=== PATIENT | male | born 1960 | race Caucasian/White ===

== ENCOUNTER 2021-10-30 12:42 | Outpatient (REF) | payer OTHER, SELFPAY ==
[2021-10-30 13:16] LABS: ALT 28 U/L (16-63); AST 19 U/L (15-37); Alkaline Phosphatase 73 U/L (46-116); Anion Gap 9.1 mmol/L (3-11); BUN 11 mg/dL (7-18); Bilirubin, Total 0.7 mg/dL (0.2-1.0); CO2 25.9 mmol/L (21.0-32.0); CREATININE 0.8 mg/dL (0.70-1.30); Calcium 9.2 mg/dL (8.5-10.1); Chloride 104 mmol/L (98-107); Glucose 97 mg/dL (74-106); Potassium 4.5 mmol/L (3.5-5.1); Sodium 139 mmol/L (136-145); Total Protein 7.5 g/dL (6.4-8.2)
== END 2021-10-30 12:43 | disposition home or self-care (01) ==
LOC: LBN 12:42
PROVIDERS: PCP Family Medicine; Visit Provider Physician Assistant Medical
DX: B97.21 SARS-associated coronavirus as the cause of diseases classified elsewhere (principal)
CPT/HCPCS: 80053

== ENCOUNTER 2023-06-09 12:28 | Emergency (ER) | payer OTHER, SELFPAY ==
[2023-06-09] VITALS (60 sets, daily range): BP systolic 145–211; BP diastolic 91–147; PULSE 64–98; RESP 10–25; TEMP 36.8; O2SAT 93–100
--- NOTE | 2023-06-09 13:00 | ED.GENADUL_ITS ---
HPI <SUSAN Ibarra - Last Filed: 06/09/23 17:38> General Stated Complaint: GenMedical CONCHITA: 3 Date/Time Provider Initiated Documentation: 06/09/23 12:40. Limitations to Documentation: no limitations. Information obtained by: patient, RN/MD, RN notes reviewed and old records reviewed. History of Present Illness tingling BUE, ataxic gait, numbness in feet moderate other (numbness, tingling) left, right, upper extremity and lower extremity reports no radiation day(s) constant No relieving factors improve symptom(s), No exacerbating factors reported weakness; denies chest pain, cough, diaphoresis, fever/chills, headaches (has chronic ADHIKARI, especially with stress at work, no change), loss of appetite, malaise, nausea/vomiting, rash, shortness of breath and syncope none Related Data Home Medications Medication Instructions Recorded Confirmed acetaminophen 500 mg tablet (Mapap 500 mg PO TID PRN 11/21/17 06/09/23 Extra Strength) ibuprofen 800 mg tablet 800 mg PO QAM 06/09/23 06/09/23 Allergies Allergy/AdvReac Type Severity Reaction Status Date / Time erythromycin base Allergy Unknown pt thinks Verified 06/09/23 11:49 a rash Penicillins Allergy Unknown pt Verified 06/09/23 11:49 questions rash Review of Systems <SUSAN Ibarra Last Filed: 06/09/23 17:38> Constitutional Constitutional: Reports as per HPI, Denies chills, Denies fever(s), Denies frequent falls and Reports weakness Eyes Eyes: Reports as per HPI, Denies blurry vision, Denies change in vision and Denies loss of vision ENT Ears, Nose, Mouth, and Throat: Denies vertigo, Denies dizziness, Denies neck pain and Reports disequilibrium Cardiovascular Cardiovascular: Reports as per HPI, Denies chest pain, Denies syncope, Denies lightheadedness, Denies dyspnea and Denies dyspnea on exertion Respiratory Respiratory: Reports as per HPI, Denies chest congestion, Denies cough, Denies dyspnea and Denies dyspnea on exertion Gastrointestinal Gastrointestinal: Reports as per HPI, Denies abdominal pain, Denies change in bowel habits, Denies nausea and Denies vomiting Genitourinary Genitourinary: Reports system reviewed and no additional complaints, except as documented (denies change in urinary habits) Musculoskeletal Musculoskeletal: Reports as per HPI, Denies back pain, Denies myalgias, Denies muscle cramps, Denies neck pain, Reports numbness and Reports tingling Integumentary/Breasts Skin/Breast: Reports as per HPI and Denies rash Neurologic Neurologic: Reports as per HPI, Denies abnormal movements, Denies abnormal speech, Denies burning sensations, Denies vertigo, Denies dizziness, Denies syncope, Denies frequent falls, Reports lack of coordination, Reports localized weakness, Denies loss of vision, Reports numbness, Denies radicular pain, Denies convulsions, Reports tingling, Reports paresthesias, Reports disequilibrium and Reports weakness PFSH <SUSAN Ibarra - Last Filed: 06/09/23 17:38> All Active Problems (Updated 04/04/18 @ 15:00 by Misty Bsailio RN) Sciatic nerve pain (Chronic) Low back pain with left-sided sciatica (Chronic 11/24/17) Surgical History Right Hand Surgery Left Foot Surgery Social History (Updated 02/26/18 @ 10:23 by Clarisse Kebede LPN) Smoking/Tobacco Use Status: Never Smoking risk assessment performed?: Yes Alcohol Intake: current Alcohol Intake frequency: a few times a week Alcohol type: wine Substance use type: does not use Adopted: No Housing: house current occupation: [employer] Pets and animals: Yes Do you feel safe in your relationship?: Yes PAWSS <SUSAN Ibarra - Last Filed: 06/09/23 17:38> Have you Been Recently Intoxicated or Drunk Within the Last 30 days?: No Have you Ever Experienced Previous Episodes of Alcohol Withdrawal?: No Have you ever Experienced Withdrawal Seizures?: No Have you ever Experienced Delirium Tremens(DT)s?: No Have you ever undergone Alcohol Rehabilitation Treatment (i.e, inpt ot outpatient treatment programs)?: No Have you ever Experienced Blackouts?: No Have you ever Combined Alcohol with other Downers within the last 90 days?: No Have you ever Combined Alcohol with any other Substance of Abuse during the last 90 days?: No Positive Blood Alcohol level on Presentation? [PCS.BAL]: No Evidence of Increased Autonomic Activity (i.e. HR>120, tremor, sweating, agitation, nausea)?: No Result: 0 <SUSAN Monteiro - Last Filed: 06/09/23 17:33> Result: 0 Exam <SUSAN Ibarra - Last Filed: 06/09/23 17:38> Const General: cooperative, healthy appearing, uncomfortable, no acute distress, well developed and well groomed Nutritional Appearance: well nourished and overweight Orientation: alert, awake and oriented x3 HENMT Head: normal to inspection, no palpable skull fracture, normocephalic and atraumatic General nose exam: external nose normal Face and sinus: normal facial exam Mouth: oral mucosae normal and moist mucous membranes Throat: posterior oropharynx normal Eyes General: appearance normal, both eyes and all related structures Alignment and Position: alignment normal Periorbital: periorbital findings normal Eyelids: eyelids normal Sclera: sclerae normal Cornea: corneas normal Pupils: PERRL EOM: EOM intact bilaterally Neck Neck: normal visual inspection, full ROM, no lymphadenopathy, no midline deformity and nontender Resp Effort & Inspection: normal respiratory effort, able to speak in complete sentences and no respiratory distress Auscultation: clear to auscultation bilaterally, no rales, no rhonchi and no wheezes Cardio Rate: regular rate Rhythm: regular rhythm Heart Sounds: S1 normal and S2 normal Back/Spine/Pelvis Cervical Spine: normal cervical lordosis and cervical ROM normal Thoracic/Lumbar Spine: thoracic and lumbar spine normal to inspection, No thoracic spinal tenderness and No lumbar spinal tenderness Skin General skin exam: no rashes or lesions noted Neuro General: patient alert, patient awake and patient oriented x3 Cranial Nerves: CN's II-XI intact bilaterally Cognition: normal cognition Speech: speech normal Gait: ataxic (Slow, mild shuffle. Unable to toe or heel walk well) Motor: strength not 5/5 throughout (Overall strength is intact, slightly weak on the left upper and left lower ), no pronator drift, no movement abnormalities noted and no fasciculations Sensory Exam: sensory deficits noted DTR's: Rt Triceps: 1+, Lt Triceps: 1+, Rt Biceps: 1+, Lt Biceps: 1+, Rt Brachioradialis: 2+, Lt Brachioradialis: 2+, Rt Patellar: 2+, Lt Patellar: 2+, Rt Ankle: 2+ and Lt Ankle: 2+ Plantar Reflexes: Upgoing: left and Equivocal: right Coordination: ernnat-xr-pvvk test normal and iqvm-rm-nbmz test normal Extrem General: normal to inspection, capillary refill normal, no pedal edema and no calf tenderness Course <SUSAN Ibarra - Last Filed: 06/09/23 17:38> Vital Signs Vital signs: Vital Signs Temperature 36.8 C 06/09/23 12:38 Pulse 71 06/09/23 12:38 Respiratory Rate 16 06/09/23 12:38 Blood Pressure 145/125 H 06/09/23 12:38 Pulse Oximetry 98 06/09/23 12:38 Temperature 36.8 C 06/09/23 12:38 Temperature Source Oral 06/09/23 12:38 Pulse 71 06/09/23 12:38 Respiratory Rate 16 06/09/23 12:38 Respiratory Effort Normal, Non-Labored 06/09/23 12:48 Blood Pressure 145/125 H 06/09/23 12:38 Pulse Oximetry 98 06/09/23 12:38 Oxygen Delivery Method Room Air 06/09/23 12:38 Oxygen Flow Rate 0 06/09/23 12:38 Medical Decision Making <SUSAN Ibarra - Last Filed: 06/09/23 17:38> Patient is a [id number] year old male, who works as a nurse, 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 Reports that he was possibly covid + one month ago, no symptoms but did have one positive test after exposure. He also slipped outside >1wk ago, landed on left buttock and right elbow. Denies striking his head, neck injury or neurologic deficit at that time. States that he does have a history of sciatica but this has not been an issue for him recently. No fevers or chills. Symptoms started in the fingertips with some mild tingling about 1 week ago. Progressed to more numbness that is diffuse in the hand, he feels that these are equal bilaterally. Patient is right-hand dominant and has had resection of his right fifth digit. Yesterday, he began noting more symptoms in the legs and difficulty with ambulation. Had to call out of work. Is concerned for ataxic gait. He is finding that he has to walk slower than typical and feels slightly off balance, unclear if this is true balance issue versus proprioception in the legs. No urinary incontinence, change in bowel or bladder habits. No visual changes, nausea, vomiting. Reports chronic headaches which are unchanged. On exam, patient appears nontoxic. Cranial nerves are intact. No significant weakness in the bilateral upper extremities although with flexion at the elbow, he does seem slightly weaker on the left than the right. This is fairly minimal. His sensory discrimination is limited in the hands however, appears intact above the wrist bilaterally. Same finding was noted in the feet, again primarily affecting the feet and then sensation intact in the calf and thigh. No saddle paresthesias. No midline tenderness. Gait is slightly ataxic. Patient is unable to toe or heel walk well. Concerned about his progressive neurological deficits. As symptoms are clearly bilateral, not consistent with a CVA. He denies any traumatic injury to his neck or his head but certainly this seems like the most likely area of pathology. Considered mass given his chronic headaches. Consider herniated disc. Also consider more systemic cause such as electrolyte imbalance, infection, Lyme. Will obtain testing as well as MRI of head and C-spine. Patient is quite claustrophobic, will give Ativan prior to imaging. Attempted to consult with neurology but they are closed today. Labs reviewed, no significant abnormality. At the end of my shift, care transition to oncoming PA with MRI results and likely consultation with neurology pending. Patient is resting in no acute distress at this time. Quality:[facility] Health Related Social Needs: No Data to Display Sign Out <SUSAN Ibarra - Last Filed: 06/09/23 17:38> Sign Out Data: Sign Out Comment: Care transitioned to SUSAN Pryor with MRI pending. Patient in stable condition, progressive neurologic deficits in BUE and BLE Last updated by Kelly Carter PA at 06/09/23 15:51 Discharge Plan Discharge Details Chief Complaint: GenMedical Primary Care Provider: Félix Jacinto ED Provider: Joel Pryor Home Meds and New Rx's Prescriptions: No Action ibuprofen 800 mg tablet 800 mg PO QAM Patient Comments: Sometimes takes a second dose if needed acetaminophen [Mapap Extra Strength] 500 MG tablet 500 mg PO TID PRN
[2023-06-09 13:18] LABS: Abs Immature Grans 0.02 10^3/uL (0.0-0.06); Absolute Basophil Count 0.03 10^3/uL (0.0-0.2); Absolute Eosinophil Count 0.55 10^3/uL (0.0-0.7); Absolute Lymphocyte Count 2.01 10^3/uL (1.2-3.4); Absolute Monocyte Count 0.86 10^3/uL (0.1-0.8); Basophils % 0.4; Eosinophils % 6.8; HCT 50.5 % (40.0-50.0); HGB 16.8 g/dL (13.5-17.5); Immature Grans % 0.2; Lymphocytes % 24.9; MCH 29.7 pg (27.0-33.0); MCHC 33.3 % (32.0-36.0); MCV 89 fL (80-95); MPV 8.7 fL (8.0-11.0); Monocytes % 10.7; Platelet Count 279 10^3/uL (130-400); RBC 5.65 10^6/uL (4.36-5.78); RDW 13.2 % (11.8-14.1); RDW-SD 43.8 fL; WBC 8.07 10^3/uL (4.4-10.8)
[2023-06-09 14:03] LABS: ALT 31 U/L (16-63); AST 23 U/L (15-37); Albumin 3.8 g/dL (3.4-5.0); Alkaline Phosphatase 67 U/L (46-116); Anion Gap 6.2 mmol/L (3-11); BUN 10 mg/dL (7-18); Bilirubin, Total 0.7 mg/dL (0.2-1.0); CO2 31.8 mmol/L (21.0-32.0); CREATININE 0.8 mg/dL (0.70-1.30); Calcium 9.3 mg/dL (8.5-10.1); Chloride 102 mmol/L (98-107); Estimated GFR 99.44 (mL/min/1.73m2); Glucose 105 mg/dL (74-106); Sodium 140 mmol/L (136-145); Total Protein 8.2 g/dL (6.4-8.2); Vitamin B12 294 pg/mL (193-986)
[2023-06-09] MEDS: LORazepam 2 MG/ML VIAL 1 MG IVP ×2 (14:56→15:20)
[2023-06-09] MEDS: Normal Saline Flush 10 ML SYR IVP (15:24)
--- NOTE | 2023-06-09 15:45 | DI.MRI_ITS ---
Exam(s) MR BRAIN WO EXAM: MR BRAIN WO CLINICAL HISTORY: ataxic gait, neuropathy hands, +Babinski TECHNIQUE: Multiplanar multisequence MRI of the brain was performed. COMPARISON: No exams were available for comparison FINDINGS: VENTRICLES AND EXTRA AXIAL SPACES: Normal in size and morphology for the patient's age. MIDLINE SHIFT: None. CEREBRAL PARENCHYMA: No focus of restricted diffusion to suggest acute infarct. No space-occupying le rose identified. Mild atrophy consistent with the patient's age. Mild scattered foci of high signal in the white matter consistent with sequela of chronic microvascular disease. HEMORRHAGE: None. BRAINSTEM/CEREBELLUM: Normal. VISUALIZED PARANASAL SINUSES/MASTOIDS:Clear. Vasculature: Normal flow void. PITUITARY GLAND: Unremarkable. ORBITS: Unremarkable. On the T2 sagittal view, at the end of the edge of the field, there appears to be severe narrowing of the central spinal canal at the C2-3 level secondary disc bulging or herniation. IMPRESSION: Unremarkable MRI of the brain. Severe central canal stenosis at C2-3. Please see separate see MRI cervical spine report. DATA REPOSITORY:
[2023-06-09 16:19] LABS: Creatine Kinase 115 U/L (39-308); Magnesium 2.1 mg/dL (1.8-2.4)
--- NOTE | 2023-06-09 16:25 | DI.MRI_ITS ---
Exam(s) MR CERVICAL SPINE WO EXAM: MR CERVICAL SPINE WO CLINICAL HISTORY: ataxic gait, neuropathy hands, +Babinski TECHNIQUE: Multiplanar multisequence MRI of the cervical spine was performed without intravenous con trast. COMPARISON: No exams were available for comparison FINDINGS: BONES: Vertebral body heights are maintained. Intervertebral disc spaces are normal. Alignment is nor mal. Degenerative endplate signal changes are seen at multiple levels of the cervical spine. There a re endplate osteophytes also seen throughout the cervical spine. CERVICAL CORD: Craniovertebral junction is unremarkable. The cervical cord is normal size and signal intensity. SOFT TISSUES: Unremarkable. C2-3: There is prominence of the disc material causing central spinal canal stenosis with an AP diame ter of 5 mm. Moderate right neural foraminal stenosis. No significant left neural foraminal stenosi s. C3-4: There is prominence of the osteophyte disc complex causing marked central spinal canal stenosis . The AP diameter is 3 mm. There is bilateral neural foraminal stenosis. C4-5: There is marked prominence of the osteophyte disc complex eccentric to the left. There is radha ed narrowing of the central spinal canal with the AP diameter at 3.4 mm. There is marked left neural foraminal stenosis and moderate right neural foraminal stenosis. C5-6: There is prominence of the osteophyte disc complex causing central spinal canal stenosis. The AP diameter is 7 0.7 mm. There is flattening of the spinal cord anteriorly. There are degenerative changes seen at the uncovertebral joints causing moderate bilateral neural foraminal stenosis. C6-7: There is prominence of the osteophyte disc complex. There is mild narrowing of the central spi nal canal. Tvbl-lw-[id number] bilateral neural foraminal stenosis is present. C7-T1: Prominence of the osteophyte disc complex. There is mild narrowing of the central spinal dunia l. Bilateral neural foraminal stenosis is present. IMPRESSION: 1. Marked degenerative changes seen throughout the cervical spine. The findings result in marked shruthi tral spinal canal and neural foraminal stenosis. 2. The findings are most marked at C2-3, C3-4 and C4-C5. The findings result in flattening of the sp inal cord and marked central spinal canal stenosis down to 3 mm in the AP diameter. 3. There is bilateral neural foraminal stenosis throughout the cervical spine. 4. There is normal signal in the spinal cord. 5. Findings were discussed with Joel Pryor at 5:20 p.m. on 06/09/2023. DATA REPOSITORY:
--- NOTE | 2023-06-09 17:33 | ED.PROG_ITS ---
Date of service: 06/09/23 Time of Service: 17:34 Medical Decision Making This dictation utilizes [id number]-hh-hhjg dictation software and may contain unedited grammatical errors. Patient received in sign-out from Kelly Carter PA-C with pending MRI Brain & MRI C-spine- essentially this 62 y/o M presents to ED today with a chief complaint of new onset bilateral hand and feet numbness, had a minor fall on the ice on May 22 or he hit his left tailbone area, had a neuroexam done at his primary care today that showed abnormal reflexes in upper extremities, weakness in upper extremities and questionable positive Babinski with some pinky toe movement, feels more off balance than normal, has a history of sciatica in the past but feels this is much different. Patients' medical history: Sciatica. Family and social history: Works as a nurse at a care facility. Pertinent exam findings / vital signs include strength 4+/5 in bilateral upper and lower extremities distal segments, no dysmetria with ewttfo-qjkm-bubmet, no ataxia, some subjective sensory deficits in bilateral distal upper extremities. Differential / pathologies of concern include Guillain-Ramirez? syndrome, Lyme disease, spinal stenosis, disc herniation, cord syndrome, peripheral neuropathy. Diagnostic studies of: -Pending MRI brain and C-spine at time of signout, otherwise labs unremarkable, tick panel pending. -MRI brain is without acute findings, MRI C-spine shows severe multilevel cervical cord compression with the cord being compressed down to 3 mm, some neural foraminal stenosis, obtaining [facility] neurosurgery consult Interventions of: -consulted [facility] for possible dexamethasone, gabapentin outpatient f/u vs transfer. ED Course/Assessment/Plan: Patient signed out to me with reduced DTRs in the upper and lower extremities, progressing mildly since a fall on the , pending MRI of the C-spine shows significant cord compression at C2-C5 which I discussed with Rip at [facility] orthospine team, they find it reasonable to follow-up as an outpatient, recommend against steroids, I discussed this with the patient and he is comfortable with this care plan. I stressed that if he has any worsening like progressing a sending paresthesias and paralysis, any bowel or urinary changes or numbness in the groin to present to nearest emergency department, we discussed possible gabapentin but he stated that he does not have very much nerve pain and would rather forego this for now. 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 Findings not consistent with neurosurgical emergency or cauda equina, any paralysis. Disposition of Cervical Myelopathy. Patient verbalized understanding of the plan and return to ED criteria and engaged in shared decision making. Medical Records Medical records reviewed: Yes I reviewed the patient's medical records. Imaging Data Radiologic Study: Imaging: MRI Radiologist's impression: EXAM: MR CERVICAL SPINE WO CLINICAL HISTORY: ataxic gait, neuropathy hands, +Babinski TECHNIQUE: Multiplanar multisequence MRI of the cervical spine was performed without intravenous contrast. COMPARISON: No exams were available for comparison FINDINGS: BONES: Vertebral body heights are maintained. Intervertebral disc spaces are normal. Alignment is normal. Degenerative endplate signal changes are seen at multiple levels of the cervical spine. There are endplate osteophytes also seen throughout the cervical spine. CERVICAL CORD: Craniovertebral junction is unremarkable. The cervical cord is normal size and signal intensity. SOFT TISSUES: Unremarkable. C2-3: There is prominence of the disc material causing central spinal canal stenosis with an AP diameter of 5 mm. Moderate right neural foraminal stenosis. No significant left neural foraminal stenosis. C3-4: There is prominence of the osteophyte disc complex causing marked central spinal canal stenosis. The AP diameter is 3 mm. There is bilateral neural foraminal stenosis. C4-5: There is marked prominence of the osteophyte disc complex eccentric to the left. There is marked narrowing of the central spinal canal with the AP diameter at 3.4 mm. There is marked left neural foraminal stenosis and moderate right neural foraminal stenosis. C5-6: There is prominence of the osteophyte disc complex causing central spinal canal stenosis. The AP diameter is 7 0.7 mm. There is flattening of the spinal cord anteriorly. There are degenerative changes seen at the uncovertebral joints causing moderate bilateral neural foraminal stenosis. C6-7: There is prominence of the osteophyte disc complex. There is mild narrowing of the central spinal canal. Yzdz-kl-heipzrmj bilateral neural foraminal stenosis is present. C7-T1: Prominence of the osteophyte disc complex. There is mild narrowing of the central spinal canal. Bilateral neural foraminal stenosis is present. IMPRESSION: 1. Marked degenerative changes seen throughout the cervical spine. The findings result in marked central spinal canal and neural foraminal stenosis. 2. The findings are most marked at C2-3, C3-4 and C4-C5. The findings result in flattening of the spinal cord and marked central spinal canal stenosis down to 3 mm in the AP diameter. 3. There is bilateral neural foraminal stenosis throughout the cervical spine. 4. There is normal signal in the spinal cord. 5. Findings were discussed with Joel Pryor at 5:20 p.m. on 06/09/2023. Radiologic Study #2: Imaging: MRI Radiologist's impression: EXAM: MR BRAIN WO CLINICAL HISTORY: ataxic gait, neuropathy hands, +Babinski TECHNIQUE: Multiplanar multisequence MRI of the brain was performed. COMPARISON: No exams were available for comparison FINDINGS: VENTRICLES AND EXTRA AXIAL SPACES: Normal in size and morphology for the patient's age. MIDLINE SHIFT: None. CEREBRAL PARENCHYMA: No focus of restricted diffusion to suggest acute infarct. No space-occupying lesion identified. Mild atrophy consistent with the patient's age. Mild scattered foci of high signal in the white matter consistent with sequela of chronic microvascular disease. HEMORRHAGE: None. BRAINSTEM/CEREBELLUM: Normal. VISUALIZED PARANASAL SINUSES/MASTOIDS:Clear. Vasculature: Normal flow void. PITUITARY GLAND: Unremarkable. ORBITS: Unremarkable. On the T2 sagittal view, at the end of the edge of the field, there appears to be severe narrowing of the central spinal canal at the C2-3 level secondary disc bulging or herniation. IMPRESSION: Unremarkable MRI of the brain. Severe central canal stenosis at C2-3. Please see separate see MRI cervical spine report. Lab Data Lab results reviewed: Yes I reviewed the patient's lab results. Labs: Laboratory Tests Range/Units 06/09/23 13:00 WBC (4.4-10.8) 10^3/uL 8.07 RBC (4.36-5.78) 10^6/uL 5.65 Hgb (13.5-17.5) g/dL 16.8 Hct (40.0-50.0) % 50.5 H MCV (80-95) fL 89 MCH (27.0-33.0) pg 29.7 MCHC (32.0-36.0) % 33.3 RDW (11.8-14.1) % 13.2 Plt Count (130-400) 10^3/uL 279 MPV (8.0-11.0) fL 8.7 Immature Gran % 0.2 Neutrophils % 57.0 Lymphocytes % 24.9 Monocytes % 10.7 Eosinophils % 6.8 Basophils % 0.4 Nucleated RBC % (0.0-0.3) % 0.0 Absolute Neutrophils (1.2-6.7) 10^3/uL 4.60 Absolute Lymphocytes (1.2-3.4) 10^3/uL 2.01 Absolute Monocytes (0.1-0.8) 10^3/uL 0.86 H Absolute Eosinophils (0.0-0.7) 10^3/uL 0.55 Absolute Basophils (0.0-0.2) 10^3/uL 0.03 Sodium (136-145) mmol/L 140 Potassium (3.5-5.1) mmol/L 4.0 Chloride (98-107) mmol/L 102 Carbon Dioxide (21.0-32.0) mmol/L 31.8 Anion Gap (3-11) mmol/L 6.2 BUN (7-18) mg/dL 10 Creatinine (0.70-1.30) mg/dL 0.8 Est GFR (CKD-EPI 2020) (mL/min/1.73m2) 99.44 Glucose (74-106) mg/dL 105 Calcium (8.5-10.1) mg/dL 9.3 Magnesium (1.8-2.4) mg/dL 2.1 Total Bilirubin (0.2-1.0) mg/dL 0.7 AST (15-37) U/L 23 ALT (16-63) U/L 31 Alkaline Phosphatase (46-116) U/L 67 Creatine Kinase (39-308) U/L 115 Total Protein (6.4-8.2) g/dL 8.2 Albumin (3.4-5.0) g/dL 3.8 Vitamin B12 (193-986) pg/mL 294 Quality:SDOH Health Related Social Needs: No Data to Display Sign Out Sign Out Data: Sign Out Comment: Care transitioned to SUSAN Pryor with MRI pending. Patient in stable condition, progressive neurologic deficits in BUE and BLE Last updated by Kelly Carter PA at 06/09/23 15:51 Discharge Plan Disposition Patient Disposition: Home Condition: Stable Discharge Details Clinical Impression: Cervical myelopathy Primary Care Provider: Félix Jacinto ED Provider: Joel Pryor Home Meds and New Rx's Prescriptions: Continued ibuprofen 800 mg tablet 800 mg PO QAM Patient Comments: Sometimes takes a second dose if needed acetaminophen [Mapap Extra Strength] 500 MG tablet 500 mg PO TID PRN Discharge Instructions Instructions: Cervical Radiculopathy (ED) Stand Alone Forms: Work Release Referrals: [facility] [Outside] (Ortho-Spine Team) Félix Jacinto DO [Primary Care Provider] -
--- NOTE | 2023-06-10 11:36 | NUR.NOTE ---
Accessed pt chart to determine diagnosis for [facility]. Nursing Note:
[2023-06-12 11:10] LABS: Lyme Ab w Rflx to Lyme Confirm Positive (Negative)
[2023-06-12 14:13] LABS: Lyme IgG Ab Negative (Negative); Lyme IgM Ab Negative (Negative)
[2023-06-13 19:00] LABS: Anaplasma phagocytophilum Negative (Negative); B. miyamotoi PCR Negative (Negative); Babesia divergens/MO-1 Negative (Negative); Babesia duncani Negative (Negative); Babesia microti Negative (Negative); Ehrlichia chaffeensis Negative (Negative); Ehrlichia ewingii/canis Negative (Negative); Ehrlichia muris eauclairensis Negative (Negative)
== END 2023-06-09 20:07 | disposition home or self-care (01) ==
PROVIDERS: Physician Assistant; Emergency Provider Physician Assistant; PCP Family Medicine
DX: M48.02 Spinal stenosis, cervical region (principal); M43.12 Spondylolisthesis, cervical region; G99.2 Myelopathy in diseases classified elsewhere
CPT/HCPCS: 123; 36415; 80053; 82550; 86617; 87798; 96374; 96376; 99284; 00123; 70551; 72141; 82607; 83735; 85025; 86618; 99283; J2060

== ENCOUNTER 2024-07-03 04:03 | Outpatient (CLI) | payer OTHER, SELFPAY ==
[2024-07-03 11:46] LABS: ALT 20 U/L (16-63); AST 19 U/L (15-37); Albumin 3.8 g/dL (3.4-5.0); Alkaline Phosphatase 67 U/L (46-116); Anion Gap 2.4 mmol/L (3-11); BUN 13 mg/dL (7-18); Bilirubin, Total 0.82 mg/dL (0.2-1.0); CO2 33.6 mmol/L (21.0-32.0); CREATININE 0.9 mg/dL (0.70-1.30); Calcium 9.2 mg/dL (8.5-10.1); Calculated LDL 131 mg/dL (<100); Chloride 104 mmol/L (98-107); Cholesterol 208 mg/dL (<200); Estimated GFR 95.37 (mL/min/1.73m2); Glucose 93 mg/dL (74-106); HDL Cholesterol 63 mg/dL (40-60); Potassium 4.3 mmol/L (3.5-5.1); Sodium 140 mmol/L (136-145); Total Protein 7.7 g/dL (6.4-8.2); Triglyceride 71 mg/dL (<150)
== END 2024-07-03 04:04 | disposition home or self-care (01) ==
LOC: LBO 04:04
PROVIDERS: PCP Family Medicine; Referring Provider Family Medicine; Visit Provider Family Medicine
DX: I10 Essential (primary) hypertension (principal)
CPT/HCPCS: 36415; 80053; 80061